=== PATIENT | female | born 1990 | race Caucasian/White ===

== ENCOUNTER 2018-07-02 20:03 | Emergency (ER) | payer OTHER ==
[2018-07-02 20:27] VITALS: BP 138/91; PULSE 68; TEMP 98.5; BMI 23.6
--- NOTE | 2018-07-02 20:27 | PDOC ---
Rapid Medical Evaluation Time Seen by Provider: 07/02/18 20:23 Medical Evaluation: Allergies Allergy/AdvReac Type Severity Reaction Status Date / Time No Known Allergies Allergy Verified 09/17/16 12:49 07/02/18 20:23 I have performed a brief in-person evaluation of this patient. The patient presents with a chief complaint of:LMP 06/01/18, bled on Sunday + , no more bleeding, sent by [facility] to get a sono Pertinent physical exam findings:none I have ordered the following:beta, sono The patient will proceed to the ED for further evaluation. 07/02/18 20:27
--- NOTE | 2018-07-02 22:13 | PDOC ---
History of Present Illness - General Chief Complaint: Vaginal Bleeding Stated Complaint: MISCARRIAGE Time Seen by Provider: 07/02/18 20:23 - History of Present Illness Initial Comments: His is a 28-year-old healthy female without comorbidities who presents for evaluation of vaginal bleeding. She states she had 3 positive test out of 5 test that she took at home last week had an episode of bleeding and pelvic cramping on Sunday which was 2 days ago and now presents to the emergency room for further evaluation. 07/02/18 22:09 Past History - Past Medical History Allergies/Adverse Reactions: Allergies Allergy/AdvReac Type Severity Reaction Status Date / Time No Known Allergies Allergy Verified 09/17/16 12:49 Home Medications: Ambulatory Orders No Home Medications 0 dose .ROUTE UTDICT 02/23/13 Asthma: No COPD: No - Surgical History Abdominal Surgery: No - Family Disease History Family Disease History: Other: Mother (Migraines) - Immunization History Immunization Up to Date: Yes - Suicide/Smoking/Psychosocial Hx Smoking Status: No Smoking History: Never smoked Number of Cigarettes Smoked Daily: 0 Information on smoking cessation initiated: No Hx Alcohol Use: No Drug/Substance Use Hx: No Substance Use Type: None Hx Substance Use Treatment: No Review of Systems - Review of Systems All Other Systems: Reviewed and Negative *Physical Exam - Vital Signs Last Vital Signs Temp Pulse Resp BP Pulse Ox 98.5 F 68 16 138/91 100 07/02/18 20:24 07/02/18 20:24 07/02/18 20:24 07/02/18 20:24 07/02/18 20:24 - Physical Exam Comments: HEAD: NC/AT EYES: Conjuntiva clear NOSE: No d/c NECK: Supple without adenopathy CARDIAC: S1 S2 LUNGS: CTA Full and Equal breath sounds ABDOMEN: Soft NT ND MS: Full ROM in all joints without edema NEUROLOGIC: No gross sensory or motor deficits, NVID SKIN: Normal color and temperature no lesions or rashes 07/02/18 22:10 ED Treatment Course - ADDITIONAL ORDERS Additional order review: Laboratory Results 07/02/18 07/02/18 20:30 20:30 Beta HCG, Quant < 1.0 Urine HCG, Qual Negative Medical Decision Making - Medical Decision Making This is most likely a miscarriage occurred 2 days ago her hCG urine is negative and her ultrasound shows no uterine . She is asymptomatic now not bleeding and has no cramping. 07/02/18 22:10 *DC/Admit/Observation/Transfer Diagnosis at time of Disposition: Miscarriage - Referrals Referrals: Fortunato Vail MD [Primary Care Provider] - Ender Deal MD [Staff Physician] - - Patient Instructions Printed Discharge Instructions: Miscarriage, DI for Miscarriage Additional Instructions: Return to the emergency room she parents any cramping or further bleeding. Otherwise follow-up with your [facility] [employer] [facility] [facility] in 2-3 days for further evaluation and treatment options. - Post Discharge Activity
== END 2018-07-02 22:14 | disposition home or self-care (01) ==
LOC: JERFT 20:03
DX: O03.9 Complete or unspecified spontaneous abortion without complication (principal)
CPT/HCPCS: 36415; 76817-TC; 84702; 84703; 86850; 86900; 86901; 99281-25

== ENCOUNTER 2020-10-03 11:00 | Emergency (ER) | payer OTHER ==
[2020-10-03 11:15] VITALS: BP 109/81; PULSE 96; TEMP 96.4; BMI 23.5
== END 2020-10-03 12:35 | disposition home or self-care (01) ==
LOC: JER 11:00
DX: R05 Cough (principal)
CPT/HCPCS: 71046-TC-FY; 99283-25